=== PATIENT | female | born 1960 | race Caucasian/White ===

== ENCOUNTER 2019-08-30 07:02 | Outpatient (CLI) | payer BC, SELFPAY ==
--- NOTE | ~2019-08-30 | XR_ITS ---
EXAMINATION: XR abdomen/kub 1V DATE: 08/30/2019 07:17 INDICATION: Left renal stone. TECHNIQUE: A supine view of the abdomen on 2 radiographs was obtained. COMPARISON: Abdomen radiographs 07/24/2019, CT abdomen and pelvis 07/17/2019 FINDINGS: There are no dilated loops of bowel. There is a 7 mm stone in left kidney. IMPRESSION: 1. 7 mm stone in left kidney. Reviewed, dictated and finalized at location A. 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
== END 2019-08-30 07:03 | disposition home or self-care (01) ==
LOC: ANHIMG 07:06
PROVIDERS: Visit Provider Urology
DX: N20.0 Calculus of kidney (principal)
CPT/HCPCS: 74018

== ENCOUNTER 2020-03-06 07:05 | Outpatient (CLI) | payer BC, SELFPAY ==
--- NOTE | ~2020-03-06 | XR_ITS ---
XR abdomen/kub 1V DATE: 03/06/2020 07:28 INDICATION: Left renal calculus TECHNIQUE: AP projection, 2 views COMPARISON: KUB 07/17/[address] abdomen pelvis FINDINGS: Postoperative changes from gastric bypass surgery are noted. Approximately 7 mm calcified stone overlies the mid left renal silhouette. No evidence of bowel obstruction. No visceromegaly is detected. The psoas shadows are intact. Degenerative changes and extra scoliosis of the thoracolumbar spine. Osteopenia. IMPRESSION: 7 mm calcified stone of left kidney Postoperative change from gastric bypass surgery Reviewed, dictated and finalized at Location [facility]. Reviewed, dictated and finalized at location A.
== END 2020-03-06 07:06 | disposition home or self-care (01) ==
LOC: ANHIMG 07:09
PROVIDERS: Visit Provider Urology
DX: N20.0 Calculus of kidney (principal)
CPT/HCPCS: 74018

== ENCOUNTER 2020-03-30 22:50 | Emergency (ER) | payer BC, SELFPAY ==
[2020-03-30 22:53] VITALS: BP 170/71; PULSE 62; RESP 20; TEMP 36.3; O2SAT 98
[2020-03-30] MEDS: KETOROLAC 30 MG/ML VIAL (*BKC) IM (23:27)
--- NOTE | 2020-03-30 23:48 | ED.NECK ---
HPI - Neck Pain/Injury General Chief Complaint: Neck Pain/Injury Stated Complaint: head and neck pain Time Seen by Provider: 03/30/20 22:56 History of Present Illness HPI Narrative: Patient is a 60-year-old female who presents the ER with right-sided neck pain. Began 2 days ago after sleeping in recliner. It is very tight on the right side of her neck and it hurts worse to turn her head to the right and left. She has no numbness or tingling going down her spine or down her arms. No direct trauma. It is making it difficult for her to sleep. Related Data Home Medications Medication Instructions Recorded Confirmed aspirin 81 mg PO DAILY 06/26/19 10/02/19 calcium carbonate-vitamin D3 1 tablet PO DAILY 06/26/19 10/02/19 [Calcium 500 + D] losartan 100 mg PO DAILY 06/26/19 10/02/19 rizatriptan 10 mg PO DIRECTED PRN 06/26/19 10/02/19 sertraline 50 mg PO DAILY 06/26/19 10/02/19 topiramate 50 mg PO DAILY 06/26/19 10/02/19 topiramate 100 mg PO HS 06/26/19 10/02/19 omeprazole 20 mg tablet,delayed 20 mg PO BID 06/27/19 10/02/19 release amlodipine 10 mg tablet 10 mg PO DAILY 10/02/19 10/02/19 clonidine 0.1 mg/24 hr weekly 1 patch TRANSDERM WEEKLY 10/02/19 10/02/19 transdermal patch Allergies Allergy/AdvReac Type Severity Reaction Status Date / Time meperidine [From Demerol] AdvReac Mild Nausea and Verified 03/30/20 23:00 Vomiting Review of Systems Constitutional: Constitutional: Denies chills, Denies fever(s) and Denies weakness Musculoskeletal: Musculoskeletal: Denies back pain and Reports muscle cramps Comments: Neck pain Neurologic: Denies focal weakness and Denies numbness [facility] Family History Family History (Updated 07/17/19 @ 08:50 by Trinidad Gonsalez RN) Father Hypertension Mother Hypertension Diabetes mellitus Social History Social History Smoking status: Never smoker Alcohol intake: never Substance use: never Gender identity (if verbalized by the patient): Female Spiritual care concerns: No Agree to blood products: Yes Exam Narrative: Exam Narrative: GENERAL: Well-appearing, well-nourished, and in no acute distress. HEAD: Normocephalic, atraumatic. NECK: Supple. No palpation right paraspinal musculature with point tenderness near C5 laterally. Decreased range of motion due to pain. CHEST: Clear to auscultation. No respiratory distress. HEART: Regular rate and rhythm. No murmur heard. Normal peripheral pulses. EXTREMITIES: Normal range of motion. No edema. NEURO: Alert and oriented x3. Course Course Emergency Course: Gave some Toradol here. Discussed with patient that it will take time for muscle spasm/strain to resolve. She does not have a ride home so will write a prescription for muscle relaxers for home. Vital Signs Vital signs: Vital Signs Temperature 97.4 F L 03/30/20 22:53 Pulse Rate 62 03/30/20 22:53 Respiratory Rate 03/30/20 22:53 Blood Pressure 170/71 H 03/30/20 22:53 Pulse Oximetry 98 03/30/20 22:53 Temperature 97.4 F L 03/30/20 22:53 Pulse Rate 62 03/30/20 22:53 Respiratory Rate 20 03/30/20 22:53 Blood Pressure 170/71 H 03/30/20 22:53 Pulse Oximetry 98 03/30/20 22:53 Discharge Plan Discharge Clinical Impression: Muscle spasm Patient Disposition: Home, Self-Care Condition: Stable Instructions: Cervical Strain (ED), Muscle Spasm (ED) Additional Instructions: Return to the ER if you have chest pain or shortness of breath, cannot keep down food or water, you have focal weakness or numbness in arm or leg, you have additional concerns. Prescriptions: New diazepam 2 mg tablet 2 mg PO BID PRN (Reason: muscle spasm) Qty: 10 RF: 0 ibuprofen 200 mg tablet 200 mg PO Q6H PRN (Reason: pain) Qty: 14 RF: 0 No Action omeprazole 20 mg tablet,delayed release (DR/EC) 20 mg PO BID RF: 0 clonidine 0.1 mg/24 hr patch weekly 1 patch
[2020-03-31] VITALS: BP 149/77; PULSE 90; RESP 19; O2SAT 99
== END 2020-03-31 | disposition home or self-care (01) ==
PROVIDERS: Emergency Provider Emergency Medicine
DX: M62.838 Other muscle spasm (principal); Z79.82 Long term (current) use of aspirin
CPT/HCPCS: 96372; 99283; J1885

== ENCOUNTER 2021-03-10 11:20 | Outpatient (CLI) | payer BC, SELFPAY ==
--- NOTE | ~2021-03-10 | XR_ITS ---
EXAMINATION: XR abdomen/kub 1V EXAM DATE: 03/10/2021 12:27 INDICATION: 7 Month F/U ESWL, Known Left Fragment, Left Flank Pain TECHNIQUE: Frontal projection of the upper abdomen, frontal projection lower abdomen/pelvis for inter pretation. Comparison is made to prior examination from 03/06/2020. FINDINGS: Small cluster of calcifications projecting over the lower pole of the left kidney, could be nephrolithiasis. Bowel gas is obscuring both renal contours. There is nonobstructive bowel gas patte rn, but moderate amount of colonic stool. Cholecystectomy clips and several regions of anastomosis ma terial. Lung bases unremarkable. Mild upper lumbar dextroscoliosis and moderate spondylosis. IMPRESSION: Probable left nephrolithiasis. Reviewed, dictated and finalized at location A.
== END 2021-03-10 11:21 | disposition home or self-care (01) ==
LOC: ANHIMG 11:25
PROVIDERS: PCP Family Medicine; Visit Provider Urology
DX: N20.0 Calculus of kidney (principal); M47.816 Spondylosis without myelopathy or radiculopathy, lumbar region; Z98.0 Intestinal bypass and anastomosis status
CPT/HCPCS: 74018

== ENCOUNTER 2021-04-18 08:57 | Outpatient (CLI) | payer BC, SELFPAY ==
--- NOTE | 2021-04-18 09:00 | ECG_ITS ---
Measurements Intervals [place] Rate: 58 P: -10 DE: 150 QRS: -9 QRSD: 89 T: 29 QT: 408 QTc: 402 Interpretive Statements SINUS BRADYCARDIA DELAYED PRECORDIAL R/S TRANSITION BASELINE ARTIFACT- I, II, III, AVR, AVL, AVF BORDERLINE ECG Electronically Signed On 04-18-2021 9:31:14 CDT by Sreekanth Young D.O.
[2021-04-18 10:02] LABS: Prothrombin Time 13.2 Seconds (11.1-14.7)
[2021-04-18 10:03] LABS: Partial Thromboplastin Time 34.3 SECONDS (22.3-36.8)
== END 2021-04-18 08:58 | disposition home or self-care (01) ==
LOC: ANHSURGERY 09:02
PROVIDERS: PCP Family Medicine; Visit Provider Urology
DX: Z01.818 Encounter for other preprocedural examination (principal); I10 Essential (primary) hypertension; N20.0 Calculus of kidney
CPT/HCPCS: 36415; 85610; 85730; 87086; 93005

== ENCOUNTER 2021-04-22 00:46 | Day surgery (SDC) | payer BC, SELFPAY ==
[2021-04-13 14:13] VITALS: BMI 32.3
--- NOTE | 2021-04-15 15:37 | PM.HPGS ---
History of Present Illness History of Present Illness Consent: Risks, benefits, and alternatives have been discussed and questions answered. Patient agrees to proceed with procedure. Chief complaint: left renal calculus Narrative: Monae Stevenson is a 61 year old female who is a known recurrent stone former. She is known to have a 5 mm stone the left kidney for years that is grown, on recent outside imaging, to 10 mm. After discussion of options she elects for ESWL. she is aware the risk including, but not limited to, adverse cardiopulmonary events, renal bleeding leading to perinephric hematoma, failure to fracture the stone need for repeat or additional procedures. Review of Systems Cardiovascular: Cardiovascular: Denies chest pain, Denies lightheadedness, Denies palpitations and Denies dyspnea Respiratory: Respiratory: Denies dyspnea Gastrointestinal: Gastrointestinal: Denies diarrhea, Denies nausea and Denies vomiting Genitourinary: Genitourinary: Denies hematuria and Denies dysuria Endocrine: Endocrine: Denies palpitations PMFSH Past Medical History Medical History Anemia Asthma GERD (gastroesophageal reflux disease) Heart murmur History of blood transfusion Hx of migraines Hypertension Kidney stone Obesity UTI (urinary tract infection) Surgical History Surgical History H/O dilation and curettage H/O gastric bypass H/O left breast biopsy H/O lithotripsy H/O: hysterectomy History of cardiac cath History of surgery on arm right arm Fx repair with penny Family History Family History Father Hypertension Mother Hypertension Diabetes mellitus Social History Social History Smoking status: Never smoker Alcohol intake: never Substance use: never Substance use type: does not use Additional living arrangements comments: WITH 13 YR OLD SON Gender identity (if verbalized by the patient): Female Spiritual care concerns: No Agree to blood products: Yes Meds Home Medications and Allergies Home Medications Medication Instructions Recorded Confirmed Type aspirin 81 mg PO DAILY 06/26/19 04/13/21 History calcium carbonate-vitamin D3 1 tablet PO DAILY 06/26/19 04/13/21 History [Calcium 500 + D] losartan 100 mg PO DAILY 06/26/19 04/13/21 History rizatriptan 10 mg PO DIRECTED PRN 06/26/19 04/13/21 History sertraline 50 mg PO DAILY 06/26/19 04/13/21 History topiramate 50 mg PO DAILY 06/26/19 04/13/21 History topiramate 100 mg PO HS 06/26/19 04/13/21 History omeprazole 20 mg tablet,delayed 20 mg PO BID 06/27/19 04/13/21 History release amlodipine 10 mg tablet 10 mg PO DAILY 10/02/19 04/13/21 History Allergies Allergy/AdvReac Type Severity Reaction Status Date / Time meperidine [From Demerol] AdvReac Mild Nausea and Verified 04/13/21 14:11 Vomiting Exam Const: General: no acute distress Resp: Effort & Inspection: normal respiratory effort GI: Inspection: non-distended GI Palp: No abdominal tenderness and No Guarding due to palpation present (GI) Auscultation: normal bowel sounds Assessment and Plan Assessment and plan (1) Left renal stone: Code(s): N20.0 - Calculus of kidney Status: Acute Assessment and Plan: Left ESWL
[2021-04-22] VITALS (8 sets, daily range): BP systolic 104–133; BP diastolic 50–63; PULSE 52–63; RESP 10–16; TEMP 36.1–36.7; O2SAT 95–100
--- NOTE | ~2021-04-22 | XR_ITS ---
EXAMINATION: XR abdomen/kub 1V DATE: 04/22/2021 06:15 INDICATION: Kidney stones. TECHNIQUE: A supine view of the abdomen on 2 radiographs was obtained. COMPARISON: CT abdomen and pelvis 07/17/2019 FINDINGS: There are no dilated loops of bowel. There is a 2 mm stone in right kidney upper pole. Ther e are least 3 stones in left kidney measuring up to 8 mm. Surgical clips in the right upper quadrant are likely from cholecystectomy. IMPRESSION: 1. Bilateral kidney stones. Reviewed, dictated and finalized at location A. IMPRESSION: 1. Bilateral kidney stones.
[2021-04-22] MEDS: LACTATED RINGERS 1,000 ML 30 ML IV CONT (06:30)
--- NOTE | 2021-04-22 06:53 | WPDHPUPDATE1 ---
History and Physical Update Update Date/Time: 04/22/21 06:53 History and Physical has been reviewed, including an updated exam of the patient. There are NO changes in the patient's condition. Risks, benefits, and alternatives have been discussed and questions answered. Patient agrees to proceed with procedure.
--- NOTE | 2021-04-22 07:15 | WPDANESEPPF ---
Anes - Initial Pre Proc Eval Procedure: Operation Date: 04/22/21 07:30 Proposed Procedures p Left Extracorporeal Shock Wave Lithotripsy - Bob Ramos MD Date/Time: 04/22/21 07:15 Surgeon: Bob Ramos MD Pre Op Diagnosis: left renal calculus Patient Data Age: 61 Gender: F Height: 1.73 m Weight: 98.2 kg Last Vital Signs Temp 36.7 C 04/22/21 06:48 Pulse 57 L 04/22/21 06:48 Resp 16 04/22/21 06:48 BP 133/62 04/22/21 06:48 Pulse Ox 98 04/22/21 06:48 Allergies Allergy/AdvReac Type Severity Reaction Status Date / Time meperidine [From Demerol] AdvReac Mild Nausea and Verified 04/22/21 06:22 Vomiting Home Medications Medication Instructions Recorded Confirmed Type aspirin 81 mg PO DAILY 06/26/19 04/22/21 History calcium carbonate-vitamin D3 1 tablet PO DAILY 06/26/19 04/22/21 History [Calcium 500 + D] losartan 100 mg PO DAILY 06/26/19 04/22/21 History rizatriptan 10 mg PO DIRECTED PRN 06/26/19 04/13/21 History sertraline 50 mg PO DAILY 06/26/19 04/22/21 History topiramate 50 mg PO DAILY 06/26/19 04/22/21 History topiramate 100 mg PO HS 06/26/19 04/22/21 History omeprazole 20 mg tablet,delayed 20 mg PO BID 06/27/19 04/22/21 History release amlodipine 10 mg tablet 10 mg PO DAILY 10/02/19 04/22/21 History Patient hx anesthesia problems: none Family hx anesthesia problems: none Results Review: All pre-operative results and documents have been reviewed as part of the pre-operative evaluation. [facility] Past Medical History Medical History Anemia Asthma GERD (gastroesophageal reflux disease) Heart murmur History of blood transfusion Hx of migraines Hypertension Kidney stone Obesity GISELA (obstructive sleep apnea) UTI (urinary tract infection) Surgical History Surgical History H/O dilation and curettage H/O gastric bypass H/O left breast biopsy H/O lithotripsy H/O: hysterectomy History of cardiac cath History of surgery on arm right arm Fx repair with penny Family History Family History Father Hypertension Mother Hypertension Diabetes mellitus Social History Social History Smoking status: Never smoker Alcohol intake: never Substance use: never Substance use type: does not use Living arrangements: with family Additional living arrangements comments: WITH 13 YR OLD SON Gender identity (if verbalized by the patient): Female Spiritual care concerns: No Agree to blood products: Yes Anes - Eval Final PreProcedure Day of Procedure 04/22/21 07:15 Patient weight: obese Heart: regular rate and rhythm Lungs: clear to auscultation Airway: Mallampati scale class II Neurological: alert and oriented Last oral intake: >/= 8 hours ASA classification: III Emergent: no Anesthetic plan: proceed Anesthesia type and monitoring: general LMA and standard monitoring Results Review: All pre-operative results and documents have been reviewed as part of the pre-operative evaluation. Informed Consent: The patient's anesthetic plan and its attendant risks and benefits were discussed with the patient/family/POA. Questions were solicited and answers provided to the satisfaction of the patient/family/POA.
[2021-04-22] MEDS: ceFAZolin 2 GM/D5W 50 ML 2 GM/50 ML BAG IVPB (07:21)
--- NOTE | 2021-04-22 07:42 | W.PM.PROC2 ---
Procedure Note - Detailed Date of Procedure 04/22/21 Pre-op Diagnosis Left renal calculus Post-op Diagnosis same Procedure Performed Left ESWL Surgeon Bob Ramos MD Anesthesia general Description of Procedure The patient was brought to the operative suite where he was placed in the supine position on the Dornier lithotripsy table. The focal point of the lithotripter was placed at a 9mm left renal calculus. A total of 2500 shocks were delivered at a power setting of 4. There appeared to be good fragmentation of the stone. The patient tolerated the procedure well and was taken to the recovery room in good condition. Estimated Blood Loss 0 Drains No Packing No Pathology none sent Complications No immediate complications Condition stable Disposition PACU
== END 2021-04-22 09:49 | disposition home or self-care (01) ==
PROVIDERS: PCP Family Medicine; Visit Provider Urology
PROC: (CPT 50590; principal; 2021-04-22 07:30)
DX: N20.0 Calculus of kidney (principal); Z79.82 Long term (current) use of aspirin; D64.9 Anemia, unspecified; J45.909 Unspecified asthma, uncomplicated; K21.9 Gastro-esophageal reflux disease without esophagitis; R01.1 Cardiac murmur, unspecified; I10 Essential (primary) hypertension; G47.33 Obstructive sleep apnea (adult) (pediatric); E66.9 Obesity, unspecified; Z68.32 Body mass index [BMI] 32.0-32.9, adult
CPT/HCPCS: 50590; 74018; J0461; J0690; J1100; J2250; J2270; J2405; J2704; J7120

== ENCOUNTER 2021-05-05 11:41 | Outpatient (CLI) | payer BC, SELFPAY ==
--- NOTE | ~2021-05-05 | XR_ITS ---
EXAMINATION: XR abdomen/kub 1V EXAM DATE: 05/05/2021 12:09 INDICATION: Left renal stone. TECHNIQUE: Frontal projection(s) of the abdomen for interpretation. Comparison is made to prior exami nation from 04/07/2021. FINDINGS: There is calcific density projecting over the left renal pelvis measuring about 6 mm. This could be a kidney stone, was present on prior study. There are some other smaller calcific densities overlying left renal contour. There are cholecystectomy clips. Small to moderate amount of colonic s tool. No dilated small bowel. There is no organomegaly. There is mild lumbar dextroscoliosis and some bridging thoracolumbar endplate osteophytes. Moderate to severe lumbar spondylosis. IMPRESSION: 1. Probable left nephrolithiasis unchanged. Reviewed, dictated and finalized at location A.
== END 2021-05-05 11:42 | disposition home or self-care (01) ==
LOC: ANHIMG 11:49
PROVIDERS: Visit Provider Urology
DX: N20.0 Calculus of kidney (principal)
CPT/HCPCS: 74018

== ENCOUNTER 2021-11-01 08:07 | Outpatient (CLI) | payer BC, SELFPAY ==
--- NOTE | ~2021-11-01 | XR_ITS ---
EXAMINATION: XR abdomen/kub 1V INDICATION: Renal calculus TECHNIQUE: Supine views of the abdomen were obtained on 2 radiographs. COMPARISON: 05/05/2021 FINDINGS: There appears to be a stable 6 mm stone of the left kidney. Surgical changes are noted near the gastroesophageal junction and in the left upper quadrant. Surgical clips in the right upper quad rant are likely from prior cholecystectomy. No stones are identified along the expected locations of the ureters or bladder. There is moderate osteoarthritis of the hips. The visualized lung bases are c lear. IMPRESSION: 1. Stable left nephrolithiasis. Reviewed, dictated and finalized at location A.
== END 2021-11-01 08:08 | disposition home or self-care (01) ==
PROVIDERS: Visit Provider Urology
DX: N20.0 Calculus of kidney (principal); M16.0 Bilateral primary osteoarthritis of hip
CPT/HCPCS: 74018

== ENCOUNTER 2022-05-07 12:05 | Emergency (ER) | payer BC, SELFPAY ==
--- NOTE | ~2022-05-07 | US_ITS ---
US venous doppler [facility] DATE: 05/07/2022 13:35 INDICATION: Left leg pain and swelling TECHNIQUE: Real-time and color flow imaging and Doppler analysis of the veins of the left lower extre mity COMPARISON: None FINDINGS: The left greater saphenous vein is patent. There is spontaneous and phasic flow and normal augmentation and color flow signal and normal compression of the deep veins of the left leg. IMPRESSION: No evidence of deep venous thrombosis of the left lower extremity Reviewed, dictated and finalized at Location A. Reviewed, dictated and finalized at location A. 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
[2022-05-07 12:15] VITALS: BP 150/77; PULSE 56; RESP 18; TEMP 36.7; O2SAT 99
--- NOTE | 2022-05-07 14:22 | ED.GENADULT ---
HPI - General Adult General Chief complaint: Extremity Injury, Lower Stated complaint: left leg and foot swelling Time Seen by Provider: 05/07/22 14:17 Source: patient Mode of arrival: ambulatory Limitations: no limitations History of Present Illness HPI narrative: 62 years old white female came to the emergency room complaining of slight pain and swelling of the left lower leg anteriorly and left foot dorsally. Patient reports that she have a big dog which keeps hitting on her leg causing quite a bit of bruises. She denies any pain posteriorly or any shortness of breath. Patient also denies any fever, chills, nausea, vomiting or similar symptoms. Related Data Home Medications Medication Instructions Recorded Confirmed aspirin 81 mg tablet,delayed 81 mg PO DAILY 06/26/19 04/22/21 release calcium carbonate 500 mg-vitamin 1 tablet PO DAILY 06/26/19 04/22/21 D3 5 mcg (200 unit) tablet (Calcium 500 + D) losartan 100 mg tablet 100 mg PO DAILY 06/26/19 04/22/21 rizatriptan 10 mg tablet 10 mg PO DIRECTED PRN Migraine 06/26/19 04/13/21 Headache sertraline 50 mg tablet 50 mg PO DAILY 06/26/19 04/22/21 topiramate 50 mg tablet 50 mg PO DAILY 06/26/19 04/22/21 topiramate 50 mg tablet 100 mg PO HS 06/26/19 04/22/21 omeprazole 20 mg tablet,delayed 20 mg PO BID 06/27/19 04/22/21 release amlodipine 10 mg tablet 10 mg PO DAILY 10/02/19 04/22/21 Allergies Allergy/AdvReac Type Severity Reaction Status Date / Time meperidine [From Demerol] AdvReac Mild Nausea and Verified 05/07/22 12:41 Vomiting Review of Systems Review of Systems: All systems reviewed & are unremarkable except as noted in HPI and below [facility] Past Medical History Medical History Anemia Asthma GERD (gastroesophageal reflux disease) Heart murmur History of blood transfusion Hx of migraines Hypertension Kidney stone Obesity GISELA (obstructive sleep apnea) UTI (urinary tract infection) Surgical History Surgical History H/O dilation and curettage H/O gastric bypass H/O left breast biopsy H/O lithotripsy H/O: hysterectomy History of cardiac cath History of surgery on arm right arm Fx repair with penny Family History Family History Father Hypertension Mother Hypertension Diabetes mellitus Social History Social History Smoking status: Never smoker Alcohol intake: never Substance use: never Substance use type: does not use Additional living arrangements comments: WITH 13 YR OLD SON Gender identity (if verbalized by the patient): Female Spiritual care concerns: No Agree to blood products: Yes Exam Narrative: General appearance: Well-developed, well-nourished Skin: Normal color Head: Normocephalic, nontraumatic Eyes: Clear conjunctiva ENT: Oropharynx normal, ears normal, nose normal Neck: Supple, nontender Chest and respiratory: Airway patent, no respiratory distress, no accessory muscle use Heart: Regular rate/rhythm Abdomen: Soft, nontender, no organomegaly, quiet bowel sounds Vascular: Normal peripheral pulses, normal capillary refill. 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
== END 2022-05-07 14:51 | disposition home or self-care (01) ==
PROVIDERS: Emergency Provider Emergency Medicine
DX: S80.12XA Contusion of left lower leg, initial encounter (principal); R60.0 Localized edema; I10 Essential (primary) hypertension; J45.909 Unspecified asthma, uncomplicated; K21.9 Gastro-esophageal reflux disease without esophagitis; G47.33 Obstructive sleep apnea (adult) (pediatric); Z87.442 Personal history of urinary calculi; Z87.440 Personal history of urinary (tract) infections; Z79.82 Long term (current) use of aspirin; E66.9 Obesity, unspecified; Z68.33 Body mass index [BMI] 33.0-33.9, adult; Z98.84 Bariatric surgery status; Z90.710 Acquired absence of both cervix and uterus; W54.1XXA Struck by dog, initial encounter
CPT/HCPCS: 93971; 99284

== ENCOUNTER 2022-09-24 04:49 | Emergency (ER) | payer BC, SELFPAY ==
--- NOTE | ~2022-09-24 | CT_ITS ---
EXAMINATION: CT brain wo con INDICATION: Headache COMPARISON: None TECHNIQUE: Standard unenhanced head CT. The dose-length product (DLP) was 681.00 mGy-cm. The mA was a djusted according to patient size. Iterative reconstruction technique was employed. FINDINGS: There is no intracranial hemorrhage, acute infarction, or abnormal mass lesion. The ventric les are normal. There is no abnormal mass effect or midline shift. The boogie-white matter differentiat ion is normal. The basal cisterns are patent. The orbits are normal. The paranasal sinuses, mastoids and calvarium are normal. IMPRESSION: 1. No acute intracranial abnormality. Reviewed, dictated and finalized at location A.
[2022-09-24 04:57] VITALS: BP 149/64; PULSE 55; RESP 14; TEMP 36.4; O2SAT 100
[2022-09-24 05:02] VITALS: BP 149/64; PULSE 55; RESP 14; O2SAT 100
[2022-09-24 05:32] VITALS: BP 125/64; O2SAT 100
[2022-09-24] MEDS: SODIUM CHLORIDE 0.9% IV 1,000 ML 999 ML IV CONT (05:38)
[2022-09-24] MEDS: diphenhydrAMINE HCl INJ 50 MG/ML VIAL IV PUSH (05:38)
[2022-09-24] MEDS: PROCHLORPERAZINE EDISYLATE 10 MG/2 ML VIAL IV PUSH (05:59)
[2022-09-24 06:00] LABS: Appearance Urine Cloudy (Clear); Bacteria Urine None Seen /hpf; Bilirubin Urine Negative (Negative); Blood Urine Negative (Negative); Color Urine Yellow (Yellow); Glucose Urine UA Negative (Negative); Ketones Urine 2+ mg/dL (Negative); Leukocyte Esterase Ur Trace LEU/UL (Negative); Nitrate Urine Negative (Negative); Non Pathogenic Casts 0-2; Protein Urine Negative (Negative); RBC Urine 0-2 /hpf (0-2); Specific Grav Ur 1.018 (1.001-1.035); Squamous Epithelial Cell Urine None seen /hpf (Few); WBC Urine 0-5 /hpf
[2022-09-24 06:06] LABS: Alanine Aminotransferase 91 U/L (6-35); Alkaline Phosphatase 122 U/L (38-126); Anion Gap 4 mmol/L (8-16); Aspartate Amino Transferase 239 U/L (14-36); Bilirubin,Total 0.5 mg/dL (0.2-1.3); Blood Urea Nitrogen 18 mg/dL (7-17); Calcium 8.3 mg/dL (8.4-10.2); Carbon Dioxide 26 mmol/L (22-30); Chloride 108 mmol/L (98-107); Estimated CRCL calculation 87 ml/min; Estimated Glomerular Filt Rate > 60; Glucose 147 mg/dL (65-110); Magnesium 2.3 mg/dL (1.6-2.3); Potassium 3.8 mmol/L (3.4-5.0); Sodium 138 mmol/L (137-145)
[2022-09-24 06:16] LABS: Add Urine Microscopic? YES
--- NOTE | 2022-09-24 06:35 | ED.GENADULT ---
HPI - General Adult General Chief complaint: Nausea/Vomiting/Diarrhea Stated complaint: N/V Time Seen by Provider: 09/24/22 05:19 History of Present Illness HPI narrative: Patient 62-year-old female who presents emergency department with chief complaint of headache and nausea. Patient reports she has history of migraines but reports that she started having headache in the occipital region of her scalp patient states that the pain is an aching-like sensation reports it varies in intensity from very mild to very severe Related Data Home Medications Medication Instructions Recorded Confirmed aspirin 81 mg tablet,delayed 81 mg PO DAILY 06/26/19 04/22/21 release calcium carbonate 500 mg-vitamin 1 tablet PO DAILY 06/26/19 04/22/21 D3 5 mcg (200 unit) tablet (Calcium 500 + D) losartan 100 mg tablet 100 mg PO DAILY 06/26/19 04/22/21 rizatriptan 10 mg tablet 10 mg PO DIRECTED PRN Migraine 06/26/19 04/13/21 Headache sertraline 50 mg tablet 50 mg PO DAILY 06/26/19 04/22/21 topiramate 50 mg tablet 50 mg PO DAILY 06/26/19 04/22/21 topiramate 50 mg tablet 100 mg PO HS 06/26/19 04/22/21 omeprazole 20 mg tablet,delayed 20 mg PO BID 06/27/19 04/22/21 release amlodipine 10 mg tablet 10 mg PO DAILY 10/02/19 04/22/21 Allergies Allergy/AdvReac Type Severity Reaction Status Date / Time meperidine [From Demerol] AdvReac Mild Nausea and Verified 05/07/22 12:41 Vomiting Review of Systems Review of Systems: A 10 system review of systems was completed on the patient and is negative except for what is stated in the HPI. Nursing and ancillary documentation was reviewed. [facility] Past Medical History Medical History Anemia Asthma GERD (gastroesophageal reflux disease) Heart murmur History of blood transfusion Hx of migraines Hypertension Kidney stone Obesity GISELA (obstructive sleep apnea) UTI (urinary tract infection) Surgical History Surgical History H/O dilation and curettage H/O gastric bypass H/O left breast biopsy H/O lithotripsy H/O: hysterectomy History of cardiac cath History of surgery on arm right arm Fx repair with penny Family History Family History Father Hypertension Mother Hypertension Diabetes mellitus Social History Social History Smoking status: Never smoker Alcohol intake: never Substance use: never Substance use type: does not use Living arrangements: with family Additional living arrangements comments: WITH 13 YR OLD SON Gender identity (if verbalized by the patient): Female Spiritual care concerns: No Agree to blood products: Yes Exam Narrative: GENERAL: Well-appearing, well-nourished, and in no acute distress. HEAD: Normocephalic, atraumatic. EYES: PERRLA and EOMI. ENT: Nares clear, no rhinorrhea or epistaxis. Mucous membranes moist. NECK: Supple. CHEST: Clear to auscultation. No respiratory distress. HEART: Regular rate and rhythm. No murmur heard. Normal peripheral pulses. ABDOMEN: Soft, nontender, nondistended, normal active bowel sounds. EXTREMITIES: Normal range of motion. No edema. SKIN: Warm, dry, no rash. NEURO: No focal deficits. Alert and oriented x3. PSYCH: Normal mood and affect. Course Vital Signs Vital signs: Vital Signs Temperature 36.4 C 09/24/22 04:57 Pulse Rate 55 L 09/24/22 04:57 Respiratory Rate 14 09/24/22 04:57 Blood Pressure 149/64 H 09/24/22 04:57 Pulse Oximetry 100 09/24/22 04:57 Oxygen Delivery Room Air 09/24/22 04:57 Temperature 36.4 C 09/24/22 04:57 Pulse Rate 55 L 09/24/22 05:02 Respiratory Rate 14 09/24/22 05:02 Blood Pressure 125/64 09/24/22 05:32 Pulse Oximetry 100 09/24/22 05:32 Oxygen Delivery Room Air 09/24/22 04:57
[2022-09-24 06:37] VITALS: BP 151/54; PULSE 58; RESP 11; O2SAT 100
[2022-09-24 06:45] LABS: Basophils Percent Auto 0.6 % (0.2-1.2); Eosinophils Percent Auto 0.2 % (0-4.4); Hematocrit 35.4 % (37.0-47.0); Hemoglobin 10.3 g/dL (12.0-15.0); Immature Granulocyte Absolute 0.02 K/mm3 (0.00-0.031); Immature Granulocyte Percent A 0.3 % (0-0.5); Lymphocytes Absolute Auto 0.29 K/mm3 (0.9-3.2); Lymphocytes Percent Auto 4.7 % (18.3-44.2); Mean Corpuscular HGB Conc 29.1 g/dl (32-36); Mean Corpuscular Hemoglobin 23.8 pg (26-34); Mean Corpuscular Volume 81.9 fl (80-100); Mean Platelet Volume 11.2 fl (7.4-10.4); Monocytes Absolute Auto 0.2 K/mm3 (0.1-0.6); Monocytes Percent Auto 3.6 % (2.6-8.5); Neutrophils Absolute Auto 5.6 K/mm3 (1.3-6.7); Neutrophils Percent Auto 90.6 % (45.5-73.1); Platelet Count Result 129 k/mm3 (150-375); Red Blood Count 4.32 M/mm3 (4.2-5.4); Red Cell Distribution Width 15.8 % (11.5-14.5); White Blood Count 6.2 K/mm3 (4.5-10.0)
[2022-09-24 08:57] VITALS: BP 135/65; PULSE 50; RESP 16
== END 2022-09-24 08:57 | disposition home or self-care (01) ==
PROVIDERS: Emergency Medicine; Emergency Provider Emergency Medicine
DX: G43.909 Migraine, unspecified, not intractable, without status migrainosus (principal); R74.01 Elevation of levels of liver transaminase levels; J45.909 Unspecified asthma, uncomplicated; I10 Essential (primary) hypertension; D64.9 Anemia, unspecified; G47.33 Obstructive sleep apnea (adult) (pediatric); K21.9 Gastro-esophageal reflux disease without esophagitis; Z87.442 Personal history of urinary calculi; Z87.440 Personal history of urinary (tract) infections; Z98.84 Bariatric surgery status; Z90.710 Acquired absence of both cervix and uterus
CPT/HCPCS: 36415; 70450; 80053; 81001; 83735; 85025; 96361; 96374; 96375; 99284; J0131; J0780; J1200; J7030

== ENCOUNTER 2022-11-07 14:58 | Outpatient (CLI) | payer BC, SELFPAY ==
--- NOTE | ~2022-11-07 | XR_ITS ---
XR abdomen/kub 1V 11/07/2022 15:18 Indication: Left renal stone Procedure: KUB Comparison: Comparison to multiple prior studies sequentially, with oldest reviewed study dated 03/2021. Findings: There are surgical changes of the left abdomen. There are cholecystectomy clips. No definit e renal stones. There is fecal impaction of the colon. Severe lumbar spondylosis with dextroscoliosis . Impression: 1: Fecal impaction of the colon and rectum. 2: Left kidney obscured by bowel content limiting evaluation for renal stones. Reviewed, dictated and finalized at location L. Impression: 1: Fecal impaction of the colon and rectum. 2: Left kidney obscured by bowel content limiting evaluation for renal stones.
== END 2022-11-07 14:59 | disposition home or self-care (01) ==
PROVIDERS: Visit Provider Urology
DX: N20.0 Calculus of kidney (principal); K56.41 Fecal impaction
CPT/HCPCS: 74018

== ENCOUNTER 2023-09-07 18:15 | Emergency (ER) | payer OTHER, SELFPAY ==
--- NOTE | ~2023-09-07 | CT_ITS ---
EXAMINATION: CT abdomen pelvis w con DATE: 09/07/2023 20:07 INDICATION: Epigastric abdominal pain. TECHNIQUE: Computed tomography (CT) of the abdomen and pelvis was performed with 100 mL Omnipaque 350 intravenous contrast. Automated exposure control and iterative reconstruction technique were employe d. The dose-length product was 367.65 mGy-cm. COMPARISON: CT abdomen and pelvis 07/17/19 FINDINGS: The visualized portions of the lung bases demonstrate minimal atelectasis. A calcified righ t lung nodule is consistent with old granulomatous disease. No pleural effusion. The heart size is no rmal. No pericardial effusion. Calcifications in the liver and spleen are consistent with old granulo matous disease. There are surgical changes in the stomach. There are changes of cholecystectomy. The pancreas and adrenal glands are normal. There is cortical thinning of the kidneys. There are peripelv ic cysts in left kidney measuring up to 16 mm. There is a 2 mm stone in right kidney. There is a 2 mm stone in left kidney. There is calcified atherosclerosis of the aorta and many of the other arteries . There are no dilated loops of bowel. The appendix is normal. There are no pathologically enlarged l ymph nodes. There is no free intraperitoneal fluid. There is mild chronic anterior wedging of multipl e vertebral bodies. There is moderate lumbar spondylosis. There are chronic bilateral L3 pars defects . There is 5 mm anterolisthesis of L3 on L4. IMPRESSION: 1. No etiology for the patient's symptoms. Reviewed, dictated and finalized at location E. [employer]
--- NOTE | 2023-09-07 18:19 | ECG_ITS ---
Measurements Intervals [place] Rate: 54 P: -32 SC: 158 QRS: 13 QRSD: 92 T: 66 QT: 454 QTc: 434 Interpretive Statements SINUS BRADYCARDIA BORDERLINE ECG COMPARED TO ECG 04/18/2021 09:23:04 NO SIGNIFICANT CHANGES Electronically Signed On 09-07-2023 18:29:03 [employer] by Sreekanth Young D.O.
--- NOTE | 2023-09-07 18:30 | ED.GENADULT ---
HPI - General Adult General Chief complaint: Abdominal Pain <Andrew Henderson PA-C - Last Filed: 09/07/23 18:32> Stated complaint: epigastric pain <Andrew Henderson PA-C - Last Filed: 09/07/23 18:32> Time Seen by Provider: 09/07/23 18:31 <Andrew Henderson PA-C - Last Filed: 09/07/23 18:32> Focused HPI: This is a 63-year-old female who with PMH of HTN, GERD who presents to the ED with chief complaint of epigastric pain for the past couple of days. Reports a sharp pain primarily in the epigastrium and does not radiate. Denies any association with exertion. GENERAL: Well-appearing, well-nourished, and in no acute distress. HEAD: Normocephalic, atraumatic. CHEST: Clear to auscultation. No respiratory distress. HEART: Regular rate and rhythm. NEURO: Alert and oriented x3. Patient screened in triage and initial orders placed. Additional care and disposition to be based upon diagnostic testing and treatment. <Andrew Henderson PA-C - Last Filed: 09/07/23 18:32> Source: patient <Andrew Henderson PA-C - Last Filed: 09/07/23 18:32> Mode of arrival: ambulatory <Andrew Henderson PA-C - Last Filed: 09/07/23 18:32> Limitations: no limitations <Andrew Henderson PA-C - Last Filed: 09/07/23 18:32> History of Present Illness HPI narrative: Patient complaining epigastric/ upper abdominal pain since Sunday. It Associated with nausea but no vomiting or diarrhea. Describes it as a stabbing sensation that does radiate slightly inferiorly to her umbilicus. No palliating or provoking factors. She trialed a few tablets of ibuprofen but none today. She has had decreased p.o. intake and decreased appetite. Denies any fevers. Last bowel movement was yesterday she denies any constipation or bleeding. History of gastric bypass, GERD, cholecystectomy. . <Judit Nugent MD - Last Filed: 09/07/23 22:53> Related Data Home medications: Home Medications Medication Instructions Recorded Confirmed aspirin 81 mg tablet,delayed 81 mg PO DAILY 06/26/19 04/22/21 release calcium carbonate 500 mg-vitamin 1 tablet PO DAILY 06/26/19 04/22/21 D3 5 mcg (200 unit) tablet (Calcium 500 + D) losartan 100 mg tablet 100 mg PO DAILY 06/26/19 04/22/21 rizatriptan 10 mg tablet 10 mg PO DIRECTED PRN Migraine 06/26/19 04/13/21 Headache sertraline 50 mg tablet 50 mg PO DAILY 06/26/19 04/22/21 topiramate 50 mg tablet 50 mg PO DAILY 06/26/19 04/22/21 topiramate 50 mg tablet 100 mg PO HS 06/26/19 04/22/21 omeprazole 20 mg tablet,delayed 20 mg PO BID 06/27/19 04/22/21 release amlodipine 10 mg tablet 10 mg PO DAILY 10/02/19 04/22/21 <Andrew Henderson PA-C - Last Filed: 09/07/23 18:32> Allergies/adverse reactions: Allergies Allergy/AdvReac Type Severity Reaction Status Date / Time meperidine [From Demerol] AdvReac Mild Nausea and Verified 09/07/23 18:40 Vomiting <NIKOLE Santiago Last Filed: 09/07/23 18:32> [facility] Past Medical History Medical History: Medical History (Updated 09/07/23 @ 21:16 by Judit Nugent MD) Anemia Asthma GERD (gastroesophageal reflux disease) Heart murmur History of blood transfusion Hx of migraines Hypertension Kidney stone Obesity GISELA (obstructive sleep apnea) UTI (urinary tract infection) <NIKOLE Santiago Last Filed: 09/07/23 18:32> Surgical History Surgical History: Surgical History (Updated 09/07/23 @ 19:59 by Judit Nugent MD) H/O dilation and curettage H/O gastric bypass 1997; [facility] H/O left breast biopsy H/O lithotripsy H/O: hysterectomy History of cardiac cath History of cholecystectomy [facility] History of surgery on arm right arm Fx repair with penny <Andrew Henderson PA-C - Last Filed: 09/07/23 18:32> Family History Family History: Family History Father Hypertension Mother Hypertension Diabetes mellitus
[2023-09-07 18:35] VITALS: BP 189/65; PULSE 61; RESP 17; TEMP 36.6; O2SAT 97
[2023-09-07 18:37] LABS: Basophils Absolute Auto 0.1 K/mm3 (0.0-0.1); Eosinophils Absolute Auto 0.2 K/mm3 (0-0.3); Eosinophils Percent Auto 3.4 % (0-4.4); Hematocrit 39.6 % (37.0-47.0); Hemoglobin 12.5 g/dL (12.0-15.0); Immature Granulocyte Absolute 0.01 K/mm3 (0.00-0.031); Immature Granulocyte Percent A 0.2 % (0-0.5); Lymphocytes Absolute Auto 1.35 K/mm3 (0.9-3.2); Mean Corpuscular HGB Conc 31.6 g/dl (32-36); Mean Corpuscular Hemoglobin 29.8 pg (26-34); Mean Corpuscular Volume 94.5 fl (80-100); Mean Platelet Volume 10.2 fl (7.4-10.4); Monocytes Absolute Auto 0.5 K/mm3 (0.1-0.6); Monocytes Percent Auto 7.7 % (2.6-8.5); Neutrophils Percent Auto 65.7 % (45.5-73.1); Platelet Count Result 145 k/mm3 (150-375); Red Blood Count 4.19 M/mm3 (4.2-5.4); Red Cell Distribution Width 15.2 % (11.5-14.5); White Blood Count 6.1 K/mm3 (4.5-10.0)
[2023-09-07 18:45] VITALS: PULSE 53; RESP 14; O2SAT 100
[2023-09-07 18:57] LABS: Alanine Aminotransferase 46 U/L (6-35); Alkaline Phosphatase 123 U/L (38-126); Anion Gap 5 mmol/L (8-16); Aspartate Amino Transferase 44 U/L (14-36); Bilirubin,Total 0.5 mg/dL (0.2-1.3); Blood Urea Nitrogen 24 mg/dL (7-17); Calcium 8.7 mg/dL (8.4-10.2); Carbon Dioxide 26 mmol/L (22-30); Chloride 109 mmol/L (98-107); Estimated CRCL calculation 42 ml/min; Estimated Glomerular Filt Rate 45; Glucose 94 mg/dL (65-110); Lipase 135 U/L (23-300); Potassium 3.3 mmol/L (3.4-5.0); Sodium 140 mmol/L (137-145)
[2023-09-07 19:02] LABS: Troponin I < 0.012 ng/mL (0.000-0.034)
[2023-09-07 19:15] VITALS: PULSE 52; RESP 15; O2SAT 99
[2023-09-07 19:46] VITALS: PULSE 50; RESP 13; O2SAT 100
[2023-09-07 20:03] LABS: Magnesium 2.4 mg/dL (1.6-2.3)
[2023-09-07] MEDS: POTASSIUM CHLORIDE 20 MEQ PACKET (FOR LIQUID) 40 MEQ PO (20:06)
[2023-09-07] MEDS: ONDANSETRON INJ 4 MG/2 ML VIAL IV PUSH (20:06)
[2023-09-07] MEDS: SODIUM CHLORIDE 0.9% IV 1,000 ML 999 ML IV CONT (20:06)
[2023-09-07 20:45] VITALS: PULSE 52; RESP 12; O2SAT 100
[2023-09-07 20:51] LABS: Influenza A QL RT-PCR Negative (Negative); Influenza B QL RT-PCR Negative (Negative); SARS-CoV-2 RNA PCR Negative (Negative)
[2023-09-07] MEDS: DICYCLOMINE HCL 10 MG CAPSULE PO (20:56)
[2023-09-07] MEDS: BELLADONNA ALK/PHENOB ELIX 10 ML, MAG HYDROX/ALUMINUM HYD/SIMETH 30 ML, LIDOCAINE HCL 2... PO (20:56)
[2023-09-07 20:57] LABS: Appearance Urine Clear (Clear); Bacteria Urine None Seen /hpf; Bilirubin Urine Negative (Negative); Blood Urine Negative (Negative); Color Urine Yellow (Yellow); Glucose Urine UA Negative (Negative); Ketones Urine Negative (Negative); Leukocyte Esterase Ur 1+ LEU/UL (Negative); Nitrate Urine Negative (Negative); Non Pathogenic Casts 0-2; Protein Urine Negative (Negative); RBC Urine 0-2 /hpf (0-2); Specific Grav Ur 1.026 (1.001-1.035); Squamous Epithelial Cell Urine None seen /hpf (Few)
[2023-09-07 21:04] LABS: Add Urine Microscopic? YES
[2023-09-07 21:35] LABS: Anion Gap 3 mmol/L (8-16); Blood Urea Nitrogen 20 mg/dL (7-17); Calcium 8.3 mg/dL (8.4-10.2); Carbon Dioxide 27 mmol/L (22-30); Chloride 108 mmol/L (98-107); Estimated CRCL calculation 50 ml/min; Estimated Glomerular Filt Rate 56; Glucose 105 mg/dL (65-110); Potassium 3.8 mmol/L (3.4-5.0); Sodium 138 mmol/L (137-145)
[2023-09-07 22:31] VITALS: BP 156/70; PULSE 54; RESP 18; O2SAT 100
== END 2023-09-07 22:38 | disposition home or self-care (01) ==
PROVIDERS: Emergency Medicine; Emergency Provider Student in an Organized Health Care Education/Training Program
DX: N17.9 Acute kidney failure, unspecified (principal); N39.0 Urinary tract infection, site not specified; D69.6 Thrombocytopenia, unspecified; E87.6 Hypokalemia; R10.13 Epigastric pain; Z20.822 Contact with and (suspected) exposure to COVID-19; I10 Essential (primary) hypertension; J45.909 Unspecified asthma, uncomplicated; E66.9 Obesity, unspecified; Z68.24 Body mass index [BMI] 24.0-24.9, adult; G47.33 Obstructive sleep apnea (adult) (pediatric); K21.9 Gastro-esophageal reflux disease without esophagitis; Z98.84 Bariatric surgery status; Z87.442 Personal history of urinary calculi; Z87.440 Personal history of urinary (tract) infections; Z90.710 Acquired absence of both cervix and uterus
CPT/HCPCS: 36415; 74177; 80048; 80053; 81001; 83690; 83735; 84484; 85025; 87086; 87088; 87636; 93005; 96361; 96365; 96375; 99284; A9270; J0696; J2405; J7030; Q9967